=== PATIENT | female | born 1955 | race Caucasian/White ===

== ENCOUNTER → 2017-10-06 08:29 | Outpatient (CLI) | payer BC, SELFPAY ==
--- NOTE | 2017-10-06 08:37 | MM_ITS ---
MM Dig screening mamm BI w/CAD CAD Screening ORDERING PHYSICIAN : Channing Valenzuela MD PATIENT AGE: 62 years GENDER: Female COMPARISON:. Previous studies for comparison apparently previous mammogram February 2009 was purged as per Hospital protocol s. INDICATION: Routine screening. No hormones. No new complaints. Noncontributory family history TECHNIQUE: Standard CC and MLO images were obtained. Additional MLO nipple profile view left breast R2 CAD reviewed. FINDINGS: Innumerable small skin calcifications are seen bilaterally at the deep breast. These are particularly evident between the breast on the partial cleavage view. Majority of these have central lucency compatible with skin calcifications. We can see that the majority are very superficial within the skin on these views is well.. No suspicious branching calcifications. There is mild asymmetry. RIGHT BREAST:Minimal nodularity at the retroareolar region. May may reflect some ductal prominence of both just behind the nipple. This area is labeled A .... A second area of minimal focal density labeled B superior to the nipple-most likely glandular tissue.. However given the focal density here on spot views suggested to further evaluate I would suspect the density seen on cc view reflect a summation of areas a in theMLO, 90 degrees and cc spot views recommended. If densities persist on spot view then ultrasound warranted. Axillary cc view right breast may also be helpful to evaluate minimal nodularity laterally LEFT BREAST:No areas of significant concern. Follow-up left mammogram 1 year adequate . ======IMPRESSION: == No previous studies for comparison . 1. RIGHT BREAST: Additional views recommended at patient's condition Mild Asymmetric small area of density at inferior retroareolar region on MLO view,. Most likely reflects benign asymmetric fibroglandular elements and/or ductal prominence. . However would suggest spot views Area A at inferior retroareolar region; as well at area labeled B superior breast on MLO view-which likely reflects fibroglandular elements as well. ... If these densities persist on spot views then ultrasound may be warranted subsequent to further evaluate. . 2. LEFT BREAST: with no areas of concern. Follow-up in one year on left BI-RADS Category: 0 Need Additional Imaging Evaluaiton. RECOMMENDED FOLLOW-UP: IMM - IMMEDIATE FOLLOW-UP RECOMMENDED (A letter has been sent to the patient regarding results of the study.) The
== END ==
PROVIDERS: PCP Family Medicine; Visit Provider Family Medicine
DX: Z12.31 Encounter for screening mammogram for malignant neoplasm of breast (principal)
CPT/HCPCS: 77067

== ENCOUNTER → 2017-10-16 12:27 | Outpatient (CLI) | payer BC, SELFPAY ==
--- NOTE | 2017-10-16 | US_ITS ---
MM Dig mamm DX unilat RT CAD, US breast RT complete COMPARISON: 10/06/2017 INDICATION: Follow-up abnormal mammogram ORDERING PHYSICIAN: Channing Valenzuela MD PATIENT AGE: 62 years TECHNIQUE: Problem-solving use lung with right breast ultrasound FINDINGS: Scattered areas of asymmetry are once again noted in the lateral and retroareolar region of the right breast.. These areas show variable compression on the spot compression views. Consistent 13 mm density is present in the retroareolar region on the cc view. Ultrasound did not demonstrate any nodules in this area. This millimeters due to asymmetric fibroglandular tissue. Unfortunately, older films are not available for review. We'll ask for the films to be looked for again and if they're found an addendum can be given. These are probably related to asymmetric islands of fibroglandular tissue. No old films are found then, would recommend short-term follow-up. Scattered benign-appearing calcifications are present as well. Right breast ultrasound: No cystic or solid lesions evident. IMPRESSION: Scattered asymmetric densities of the right breast which may be related to asymmetric fibroglandular tissue. Short-term follow-up recommended BI-RADS Category: 3 Benign Finding Short Term Follow-up RECOMMENDED FOLLOW-UP: 3M - 3 MONTH FOLLOWUP Recommend searching for old films again. If none are available then, recommend short-term 3 month mammographic follow-up. (A letter has been sent to the patient regarding results of the study.)
== END ==
PROVIDERS: PCP Family Medicine; Visit Provider Family Medicine
DX: R92.8 Other abnormal and inconclusive findings on diagnostic imaging of breast (principal)
CPT/HCPCS: 76641; 77065

== ENCOUNTER → 2018-04-02 14:53 | Outpatient (CLI) | payer BC, SELFPAY ==
--- NOTE | 2018-04-02 14:56 | CT_ITS ---
CT lung screening EXAM: CT LUNG LOW DOSE WO CONTRAST HISTORY: 47 History smoking history, asymptomatic for lung cancer ITS.REASON: HX TOBACCO USE ORDERING PHYSICIAN: Channing Valenzuela MD PATIENT AGE: 62 years COMPARISON: None TECHNIQUE: The exam was performed on a GE Light Speed [address] scanner using 2.94 mGy CTDI. A low dose helical CT CHEST was performed on a multi-detector scanner. All CT scans at the facility use one or more dose reduction, viz: automated exposure control, ma/kV adjustment per patient size (including targeted exams where dose is matched to indication, i.e. head), or iterative reconstruction technique. The LDCT was performed in a facility that meets the criteria for the screening program. Data regarding this exam was submitted to ACR which is an approved registry. The order for this exam indicates that it came as a result of a lung cancer screening counseling shard decision-making visit that included all the elements required of such a visit including smoking cessation. The radiologist interpreting this exam meets the [facility] criteria for the LDCT lung cancer screening program. The exam is reported using the Lung-RADS classification scale and reported to the ACR registry. NOTE: This study was performed for the specific purposes of lung cancer screening and is not an alternative to diagnostic chest CT. RADIATION DOSE: CTDI vol(CT dose Index-volume) = 2.94mG DLP (Dose Length Product) = 89.08 mGcm FINDINGS: There are scattered small nodes within the mediastinum and mere some which are calcified. Coronary artery calcifications are present. There is minimal thickening of the pericardium 5 mm semisolid nodule right upper lobe image #22. Calcified granulomas are present in the right lower lobe. Calcified granulomas left upper lobe. Calcified granuloma left lower lobe medially. Atherosclerotic changes are present in the aorta. Upper abdominal images show mild pneumobilia. IMPRESSION: 1. Lung RADS Category: 2, benign 2. Other findings: Old granulomatous disease, coronary artery disease small amount gas is present in the biliary tree present from prior cholecystectomy. Please correlate with clinical findings RECOMMENDATIONS: 12 month LDCT follow-up
== END ==
PROVIDERS: PCP Family Medicine; Visit Provider Family Medicine
DX: Z12.2 Encounter for screening for malignant neoplasm of respiratory organs (principal); Z87.891 Personal history of nicotine dependence

== ENCOUNTER → 2019-04-07 12:12 | Outpatient (CLI) | payer BC, SELFPAY ==
--- NOTE | 2019-04-07 12:15 | CT_ITS ---
PROCEDURE: CT LUNG SCREENING CLINICAL INDICATION: H/O NICOTINE DEPENDENCE Fifty pack-year smoking history, asymptomatic for lung cancer COMPARISON: LUNGSCREEN CT lung screening from 04/02/2018 TECHNIQUE: The exam was performed on a GE Light Speed [address] scanner using 2.90 mGy CTDI. A low dose helical CT CHEST was performed on a multi-detector scanner. All CT scans at the facility use one or more dose reduction, viz: automated exposure control, ma/kV adjustment per patient size (including targeted exams where dose is matched to indication, i.e. head), or iterative reconstruction technique. The LDCT was performed in a facility that meets the criteria for the screening program. Data regarding this exam was submitted to ACR which is an approved registry. The order for this exam indicates that it came as a result of a lung cancer screening counseling shard decision-making visit that included all the elements required of such a visit including smoking cessation. The radiologist interpreting this exam meets the CMS criteria for the LDCT lung cancer screening program. The exam is reported using the Lung-RADS classification scale and reported to the ACR registry. NOTE: This study was performed for the specific purposes of lung cancer screening and is not an alternative to diagnostic chest CT. RADIATION DOSE: CTDI vol(CT dose Index-volume) = 2.90mG DLP (Dose Length Product) = 96.27 mGcm FINDINGS: COPD scattered nodular opacities are once again noted some of which are calcified. A ground-glass nodules present in the right upper lobe at 7 mm and is unchanged. No new nodules are identified. Incidental findings include coronary artery calcifications, calcification of the aortic arch, mild lower thoracic scoliosis, and pneumobilia similar to the previous exam IMPRESSION: Lung rads category 2 benign findings Recommend screening LD CT in 12 months Dictated by: Chriss Alvarez MD 04/10/2019 10:11 Electronically signed by Chriss Alvarez MD in [place] 04/10/2019 10:11
== END ==
PROVIDERS: PCP Family Medicine; Visit Provider Family Medicine
DX: Z87.891 Personal history of nicotine dependence (principal); Z12.2 Encounter for screening for malignant neoplasm of respiratory organs

== ENCOUNTER → 2020-12-20 12:28 | Outpatient (CLI) | payer MEDICARE, SELFPAY ==
--- NOTE | 2020-12-20 12:39 | CT_ITS ---
PROCEDURE: CT LUNG SCREENING CLINICAL INDICATION: H/O NICOTINE DEPENDENCE Current smoker 50 pack year smoking history COMPARISON: CT CT LUNG SCREENING from 04/07/2019 TECHNIQUE: The exam was performed on a GE Light Speed [address] scanner using 2.90 mGy CTDI. A low dose helical CT CHEST was performed on a multi-detector scanner. All CT scans at the facility use one or more dose reduction, viz: automated exposure control, ma/kV adjustment per patient size (including targeted exams where dose is matched to indication, i.e. head), or iterative reconstruction technique. The LDCT was performed in a facility that meets the criteria for the screening program. Data regarding this exam was submitted to ACR which is an approved registry. The order for this exam indicates that it came as a result of a lung cancer screening counseling shard decision-making visit that included all the elements required of such a visit including smoking cessation. The radiologist interpreting this exam meets the CMS criteria for the LDCT lung cancer screening program. The exam is reported using the Lung-RADS classification scale and reported to the ACR registry. NOTE: This study was performed for the specific purposes of lung cancer screening and is not an alternative to diagnostic chest CT. RADIATION DOSE: CTDI vol(CT dose Index-volume) = 2.90mG DLP (Dose Length Product) = 84.12 mGcm FINDINGS: COPD with scattered areas of scarring and old granulomatous disease. Small ground-glass nodule in the right upper lobe at 7 mm is unchanged. There is faint ground-glass attenuation in the right upper lobe posteriorly unchanged. No suspicious nodules identified. OTHER FINDINGS: There is mild prominence of the main pulmonary artery with pulmonary artery/aorta ratio greater than 1 suggesting pulmonary arterial hypertension.. There are coronary artery calcifications. There is minimal thickening of the pericardium inferiorly. Pneumobilia. Mildly prominent left adrenal gland unchanged. IMPRESSION: Lung-RADS Category 2 Benign Appearance or Behavior Follow-up: Continue annual screening with LDCT in 12 months Other nonacute findings as described above Dictated by: Chriss Alvarez MD 01/01/2021 08:44 Chriss Alvarez MD in [place] 01/01/2021 08:44
--- NOTE | 2020-12-20 12:40 | MM_ITS ---
PROCEDURE INFORMATION: Exam: MG Screening 3D Mammography Exam date and time: 12/20/2020 12:40 PM Age: 65 years old Clinical indication: Encounter for screening mammogram for malignant neoplasm of breast TECHNIQUE: Imaging protocol: Screening tomosynthesis and 2D mammography including computer-aided detection (CAD) when performed. COMPARISON: 1. MG DXRT MM Dig mamm DX unilat RT CAD 10/16/2017 1:14 PM 2. MG SCBI MM Dig screening mamm BI w/CAD 10/06/2017 8:58 AM 3. BREASTRT US breast RT complete 10/16/2017 1:49 PM FINDINGS: MAMMOGRAPHY: Breast composition: There are scattered areas of fibroglandular density. Mass: No new suspicious masses. Architectural distortion: No suspicious distortion. Calcifications: No suspicious calcifications. Asymmetric density: None. Skin thickening: None. Axillary adenopathy: None. IMPRESSION: No mammographic evidence of malignancy. Annual screening is recommended unless otherwise clinically indicated. ASSESSMENT: BI-RADS Category 1: Negative
--- NOTE | 2020-12-20 12:40 | XR_ITS ---
PROCEDURE: XR DEXA AXIAL SKELETON CLINICAL HISTORY: OSTEOPOROSIS SCREENING,POST MENOPAUSAL COMPARISON: No exams were available for comparison FINDINGS: The right hip BMD is 0.667 with a T-score of -1.6. The left hip BMD is 0.638 with a T-score of -1.9. The lumbar spine BMD is 0.857 with a T-score of -1.7. IMPRESSION: This patient is considered osteopenic according to the World Health Organization criteria. Bone density is between 10 and 25 percent below young normal. Fracture risk is moderate. Treatment is advised. Based on these results a follow-up exam is recommended in year. Dictated by: Chriss Alvarez MD 12/21/2020 20:05 Chriss Alvarez MD in [place] 12/22/2020 04:43
== END ==
PROVIDERS: PCP Family Medicine; Visit Provider Family Medicine
DX: Z87.891 Personal history of nicotine dependence (principal); Z12.2 Encounter for screening for malignant neoplasm of respiratory organs; Z12.31 Encounter for screening mammogram for malignant neoplasm of breast; Z13.820 Encounter for screening for osteoporosis; Z78.0 Asymptomatic menopausal state
CPT/HCPCS: 71271; 77063; 77067; 77080

== ENCOUNTER → 2021-04-10 14:55 | Outpatient (CLI) | payer MEDICARE, SELFPAY ==
--- NOTE | 2021-04-10 | CA_ITS ---
APPROVED REPORT EXAM: Comprehensive 2D, Doppler, and color-flow Echocardiogram Pension Consultant: Aysha Wadsworth RT(R) Ht: 4 ft 11 in Wt: 156lbs BSA: 1.66 BP: 124/84 mmHg Indications: Abn CT chest, COPD, ex smoker quit november 2020, DM, hyperlipidemia, rule out pulmonary HTN 2D Dimensions LVOT 1.79 cm (M/F) 1.5-2.5 LA Volume 23.50 mL LA Volume Index 14.20 mL/m2 (M/F) 16-34 M-Mode Dimensions RVDd 0.68 cm (0.9-2.6) LA Diam 3.19 cm (1.9-4.0) LVDd 4.79 cm (3.5-5.7) Ao Diam 2.50 cm (2.0-3.7) LVDs 3.74 cm (3.5-5.7) IVSd 0.80 cm (0.6-1.1) PWd 0.97 cm (0.6-1.1) EF (Teich) 44.30% FS 21.90% EDV (Teich) 107.00 mL ESV (Teich) 59.60 mL LV Diastology E Decel Time 150.00 (160-240 msec) E/A Ratio 0.54 MED E' 6.80 (< 7 cm/sec) E'/MED E' Ratio 9.13 (>14) LAT E' 6.00 (<10 cm/sec) E/LAT E' Ratio 10.35 (>14) Mitral Valve MV E Max Salvador. 62.00 (40-130 cm/s) MV A Velocity 115.00 (40-130 cm/s) E/A Ratio 0.54 MV Decel. Time 150.00 (160-240 ms) MV PHT 44.00 ms Tricuspid Valve TR P. Velocity 251.00 cm/s RAP Estimate 15.00 mmHg RVSP 40.20 mmHg Left Ventricle Left atrium is mildly enlarged, the ventricle is normal size, mild concentric left ventricular hypertrophy visually estimated ejection fraction 55% with wall motion abnormality, grade 1 diastolic dysfunction seen without tissue Doppler evidence of raise left atrial pressure. Right Ventricle Right atrium and right ventricular qualitatively normal size and contractility. Aortic Valve Aortic valve is thickened and calcified without aortic stenosis or aortic insufficiency. Mitral Valve Mitral leaflets are minimally thickened, there is mild mitral regurgitation. Tricuspid Valve Tricuspid valve grossly normal, there is mild tricuspid regurgitation, calculated right ventricular systolic pressure is 40 mmHg. Pulmonic Valve Pulmonic valve is poorly visualized. Great Vessels Aortic root is normal size. Inferior vena cava is normal size with normal inspiratory collapse. Pericardium No significant pericardial effusion noted. Conclusion 1. Mildly enlarged left atrium, normal left ventricular size, mild concentric left ventricular hypertrophy, visually estimated ejection fraction 55% with no regional wall motion abnormality, grade 1 diastolic dysfunction seen without tissue Doppler evidence of raise left atrial pressure. 2. Mild mitral and tricuspid regurgitation. Calculated right ventricular systolic pressure is 40mmHg. 3. No significant pericardial effusion noted. 4. Inferior vena cava is normal size with normal inspiratory collapse. Electronically signed by : Myles Dutton MD 04/10/2021 19:03:50
== END ==
PROVIDERS: PCP Family Medicine; Visit Provider Family Medicine
DX: R93.89 Abnormal findings on diagnostic imaging of other specified body structures (principal); I10 Essential (primary) hypertension; E11.9 Type 2 diabetes mellitus without complications; Z79.84 Long term (current) use of oral hypoglycemic drugs; I34.0 Nonrheumatic mitral (valve) insufficiency
CPT/HCPCS: 93306

== ENCOUNTER → 2022-06-26 10:25 | Outpatient (CLI) | payer MEDICARE, SELFPAY ==
[2022-06-26 18:33] LABS: Alanine Aminotransferase 13 U/L (12-78); Albumin Level 4.3 g/dl (3.5-5.0); Albumin/Globulin Ratio 1.7 (1.1-1.8); Alkaline Phosphatase 88 U/L (38-126); Anion Gap 14.8 mEq/L (5-15); Aspartate Amino Transferase 17 U/L (14-36); Bilirubin,Total 0.4 mg/dl (0.2-1.3); Blood Urea Nitrogen 14 mg/dl (7-17); Carbon Dioxide 26 mmol/L (22.0-30.0); Chloride 95 mmol/L (98-107); Chol/HDL Ratio 2.3 (1-3.5); Cholesterol 97 mg/dl (140-200); Estimated Glomerular Filt Rate 83 ml/min (>60); GFR (African American) 101 ML/MIN (>60); Globulin 2.6 g/dL (1.3-3.2); Glucose 100 mg/dl (74-100); HDL Cholesterol 43 mg/dl (40-60); Potassium 3.8 mmoL/L (3.5-5.1); Sodium 132 mmol/L (136-145); Total Protein,Serum 6.9 g/dl (6.3-8.2); Triglycerides 75 mg/dl (30-150); Uric Acid 3.2 mg/dl (2.5-6.2); VLDL Cholesterol 15 mg/dL (0-40)
[2022-06-26 18:39] LABS: Creatinine,Urine Random 114 mg/dL (Not Estab.)
[2022-06-26 18:44] LABS: Direct LDL Cholesterol 39.05 mg/dL (100-129)
[2022-06-26 18:46] LABS: Microalbumin/Creatinine Ratio 27.8
[2022-06-26 18:51] LABS: Basophils # 0.1 K/mm3 (0-0.2); Basophils % 0.5 % (0.1-2.0); Eosinophils # 0.2 K/mm3 (0.0-0.4); Eosinophils % 1.5 % (0.1-12.0); Hematocrit 40.3 % (37.0-47.0); Hemoglobin 13.5 g/dL (12.2-16.2); Lymphocytes # 1.6 K/mm3 (0.7-4.5); Lymphocytes % 14.3 % (10-50); Mean Corpuscular HGB Conc 33.5 g/dL (31.8-35.4); Mean Corpuscular Hemoglobin 32.3 pg (27.0-31.2); Mean Corpuscular Volume 96.3 fl (81-99); Mean Platelet Volume 9.9 fl (7.4-10.4); Monocytes # 0.6 K/mm3 (0.1-1.0); Monocytes % 5.4 % (1.7-9.3); Neutrophils # 8.8 K/mm3 (1.8-7.8); Neutrophils % 78.2 % (37.0-80.0); Platelet Count 353 K/mm3 (142-424); Red Blood Count 4.19 M/mm3 (4.20-5.40); Red Cell Distribution Width 13.8 % (11.5-17.5); White Blood Count 11.3 K/mm3 (4.8-10.8)
[2022-06-26 19:04] LABS: Thyroid Stimulating Hormone 1.63 uIU/mL (0.465-4.68)
[2022-06-26 20:08] LABS: Hemoglobin A1C 5.5 % (4.0-6.0)
== END ==
PROVIDERS: PCP Family Medicine; Visit Provider Family Medicine
DX: D64.9 Anemia, unspecified (principal); E11.9 Type 2 diabetes mellitus without complications; E78.5 Hyperlipidemia, unspecified; I10 Essential (primary) hypertension; M10.9 Gout, unspecified; Z79.84 Long term (current) use of oral hypoglycemic drugs
CPT/HCPCS: 80053; 80061; 82043; 82570; 83036; 84443; 84550; 85025

== ENCOUNTER 2024-07-27 12:27 | Outpatient (CLI) | payer MEDICARE, SELFPAY ==
--- NOTE | 2024-07-27 | CT_ITS ---
FINAL REPORT TECHNIQUE: Axial images were obtained from the lung apex to the mid abdomen by computed tomography. This study was performed with techniques to keep radiation doses as low as reasonably achievable (ALARA). Individualized dose reduction techniques using automated exposure control or adjustment of mA and/or kV according to the patient's size were employed. CLINICAL HISTORY: SCREENING smoker 1 ppd x 50 years COMPARISON: 11/30/2020 FINDINGS: CHEST CT LOW DOSE CTDI vol (mGy): 2.90 DLP (mGy-cm): 89.34 There is no axillary adenopathy. There is no hilar or mediastinal adenopathy. The heart is normal in size. There is no pericardial or pleural effusion. There is faint groundglass nodule in the periphery of the right upper lobe well-seen on image 17 of series 2 measuring 7 mm which is stable. Cluster of nodules in the posterior right lower lobe are stable, some of which are calcified. Nodule in the periphery of the left upper lobe is stable well-seen on image 34 of series 2. Limited images of the upper abdomen are unremarkable. IMPRESSION: Stable bilateral pulmonary nodules. Lung RADS category 2. Recommend 12 month follow-up low-dose chest CT. Reviewed, Interpreted and Dictated by Riley Gibson MD Transcribed by Raquel Gaxiola Authenticated and [facility]
== END 2024-07-27 23:59 | disposition home or self-care (01) ==
PROVIDERS: PCP Family Medicine; Visit Provider Family Medicine
DX: Z87.891 Personal history of nicotine dependence (principal); Z12.2 Encounter for screening for malignant neoplasm of respiratory organs
CPT/HCPCS: 71271